=== PATIENT | female | born 1975 | race Caucasian/White ===

== ENCOUNTER → 2019-09-19 13:12 | Outpatient (BNVA) | payer OTHER, SELFPAY | PROVIDERS: PCP Obstetrics & Gynecology; Visit Provider Obstetrics & Gynecology | DX: N93.9 Abnormal uterine and vaginal bleeding, unspecified (principal) | CPT/HCPCS: 76830 ==

== ENCOUNTER 2021-01-24 07:11 | Outpatient (CLI) | payer OTHER, SELFPAY ==
--- NOTE | 2021-01-24 07:30 | MM_ITS ---
WS: [id number] Bilateral screening digital mammogram, 01/24/2021 Clinical Data: Z12.39 - Encounter for other screening for malignant neop... Comparison: 02/24/2019, 08/20/2017, 06/04/2016, 08/29/2014, 08/21/2014. Findings: The breast parenchymal pattern shows fibroglandular tissue No spiculated masses or clustered calcific ations are seen. There are no secondary signs of carcinoma. There are lymph nodes in both axilla. MM/[id number] Impression: 1. Negative bilateral mammogram unchanged. 2. Recommend annual screening mammograms. BIRADS: 1-Negative FOLLOW UP: 1 Year Follow-up The CAD weight yardage checker was used.
== END 2021-01-24 07:12 | disposition home or self-care (01) ==
LOC: RADSHAW 07:16
PROVIDERS: Visit Provider Nurse Practitioner Women's Health
DX: Z12.31 Encounter for screening mammogram for malignant neoplasm of breast (principal)
CPT/HCPCS: 77067

== ENCOUNTER → 2022-02-25 16:16 | Outpatient (BNVA) | payer OTHER, SELFPAY | PROVIDERS: Visit Provider Nurse Practitioner Women's Health | DX: N93.9 Abnormal uterine and vaginal bleeding, unspecified (principal); Z01.419 Encounter for gynecological examination (general) (routine) without abnormal findings; N76.0 Acute vaginitis; Z30.431 Encounter for routine checking of intrauterine contraceptive device; N89.8 Other specified noninflammatory disorders of vagina | CPT/HCPCS: 84443; 84702; 85025; 87624 ==

== ENCOUNTER → 2022-03-02 08:13 | Outpatient (BNVA) | payer OTHER, SELFPAY | PROVIDERS: Visit Provider Nurse Practitioner Women's Health | DX: N93.9 Abnormal uterine and vaginal bleeding, unspecified (principal) | CPT/HCPCS: 76830 ==

== ENCOUNTER → 2022-05-05 13:00 | Outpatient (BNVA) | payer OTHER, SELFPAY | PROVIDERS: Visit Provider Obstetrics & Gynecology | DX: N93.9 Abnormal uterine and vaginal bleeding, unspecified (principal); N84.0 Polyp of corpus uteri | CPT/HCPCS: 81025; 88305 ==

== ENCOUNTER 2022-07-15 05:39 | Day surgery (SDC) | payer OTHER, SELFPAY ==
[2022-07-13 09:46] VITALS: BMI 32.9
--- NOTE | 2022-07-13 10:00 | ANES.PREANE2 ---
Pre-Anesthetic Assessment Height/Weight: Height 1.68 m Weight 92.533 kg Operation Date: 07/15/22 07:10 Proposed Procedures p Hysteroscopy, polypectomy via Myosure 39443, 36839(Not Applicable) - Timbo Moreno MD s Dilation And Curettage (D&C)(Not Applicable) - Timbo Moreno MD Familial anesthetic complications: None Social Tobacco (quit smoking 2 days ago) Exam alert, oriented x 3, clear to auscultation bilaterally and regular rate & rhythm Airway Mallampati: Class II Dentition: partials Pulmonary None reported CV/HEM None reported None reported Hepatic None reported GI None reported Metabolic None reported Musc/skel None reported Neuropsych None reported Anesthetic Plan ASA status: 1 Anesthesia: General Risk of > 500 ml blood loss (7ml/kg in children): No Medications/Allergies Home Medications Medication Instructions Recorded Confirmed Last Taken Type No Known Home Medications 05/05/22 07/13/22 Unknown History Allergies Allergy/AdvReac Type Severity Reaction Status Date / Time No Known Allergies Allergy Verified 07/13/22 08:09 [facility] Anesthesia Medical History (Updated 05/05/22 @ 14:17 by Timbo Moreno MD) Abnormal uterine bleeding (AUB) Menometrorrhagia No pertinent past medical history neghx: htn,dm,thyroid,dvt/pe PCP: none White coat syndrome with high blood pressure but without hypertension Surgical History No history of previous surgery Family History Mother Hypertension Sister Hypertension Grandmother Diabetes MGM Family/Other Diabetes Maternal aunt Thyroid disease Maternal Aunt Denies family history of Colon cancer Ovarian cancer Heart disease Hypercholesteremia Breast cancer Uterine cancer Stroke Social History Smoking and tobacco status: former smoker Additional social history: Well balanced diet Data Anesthesia Cardiac Studies: No Data to Display
[2022-07-15 06:05] VITALS: BP 192/127; PULSE 91; RESP 18; TEMP 36.2; O2SAT 96
[2022-07-15 06:20] LABS: OR HCG Qualitative Urine Negative (Negative)
[2022-07-15] MEDS: scopolamine 1.5 Patch 1 PATCH TRANSDERMA (06:21)
[2022-07-15] MEDS: sodium chloride 0.9% 1,000 ML 30 ML IV (06:22)
[2022-07-15 06:33] LABS: Basophils % 0.6 %; Eosinophils % 0.6 %; Hematocrit 45.8 % (37.0-47.0); Hemoglobin 15.3 g/dL (11.5-15.3); Lymphocytes # 2.4 10^3/uL (0.8-4.8); Lymphocytes % 34.5 %; Mean Corpuscular HGB Conc 33.4 g/dL (30.0-36.0); Mean Corpuscular Hemoglobin 29.6 pg (28.0-34.0); Mean Corpuscular Volume 88.6 fl (81-99); Mean Platelet Volume 10.7 fL (7.4-10.4); Monocytes # 0.7 10^3/uL (0.2-0.9); Monocytes % 9.5 %; Neutrophils % 54.2 %; Nucleated Red Blood Cells % 0 %; Platelet Count 267 10^3/cmm (130-400); Red Blood Count 5.17 10^6/uL (4.1-5.3); Red Cell Distribution Width 12.7 % (12.1-15.1); White Blood Count 6.8 10^3/uL (4.0-10.0)
--- NOTE | 2022-07-15 06:36 | P.ANESUD_ITS ---
Pre-Anesthetic Update Pre-Anesthetic Assessment: Date of Surgery/Procedure: 07/15/22 Preop Jaci gnosis: Abnormal uterine bleeding, endometrial polyp Proposed Procedure: Operation Date: 07/15/22 07:00 Proposed Procedures p Hysteroscopy, polypectomy via Myosure 54303, 25676(Not Applicable) - Timbo Moreno MD s Dilation And Curettage (D&C)(Not Applicable) - Timbo Moreno MD Any changes to Pre-Anesthetic Assessment?: No Last Intake: Intake Last Liquid Date 07/14/22 Last Liquid Time 18:30 Last Solid Date 07/14/22 Last Solid Time 18:30 Labs Last 48hrs: Short CBC 07/15/22 Range/Units 06:15 WBC 6.8 (4.0-10.0) 10^3/ uL Hgb 15.3 (11.5-15.3) g/dL Hct 45.8 (37.0-47.0) % MCV 88.6 (81-99) fl Plt Count 267 (130-400) 10^3/c mm Neut % (Auto) 54.2 % Neut # (Auto) 3.70 (1.8-7.7) 10^3/u L Vitals: Temperature 97.2 F L 07/15/22 06:05 Pulse Rate 91 07/15/22 06:05 Respiratory Rate 18 07/15/22 06:05 Blood Pressure 192/127 07/15/22 06:05 Blood Pressure Ingrid n 148 07/15/22 06:05 Pulse Oximetry 96 07/15/22 06:05 Oxygen Delivery Me thod 07/15/22 06:05 Exam: Pre-Anes Outpt Exam: alert, oriented x 3, clear to auscultation bilaterally and regular rate & rhythm Cardiac Studies: No Data to Display
[2022-07-15 06:52] LABS: Alanine Aminotransferase 58 U/L (0-33); Albumin Level 4.3 g/dL (3.5-5.2); Alkaline Phosphatase 101 U/L (35-105); Anion Gap 15.9 (5-19); Aspartate Amino Transferase 28 U/L (0-32); Blood Urea Nitrogen 11 mg/dL (6-20); Carbon Dioxide 22 mmol/L (22-29); Chloride 103 mmol/L (98-107); Glomerular Filtration Rate 107.2 mL/min (90-130); Glucose 108 mg/dL (65-115); Osmolality Calculated 284 mOsm/kg (285-295); Potassium 3.9 mmol/L (3.5-5.1); Sodium 137 mmol/L (136-145); Total Bilirubin 0.4 mg/dL (0.15-1.2); Total Protein 7.3 g/dL (6.6-8.7)
[2022-07-15 06:54] LABS: Bilirubin Urine Neg (Negative); Blood Urine 2+ (Negative); Glucose Urine UA Norm (Normal); Ketones Urine Negative (Negative); Nitrate Urine Negative (Negative); Protein Urine Neg (Negative); Urine Appearance Clear (CLEAR); Urine Color Yellow (Yellow); pH Urine 5 (5-7)
[2022-07-15 06:55] LABS: Add Urine Microscopic? YES; Leukocyte Esterase Urine Negative (Negative); Urobilinogen Urine Neg (Negative)
[2022-07-15] MEDS: ceFAZolin 2,000 MG in sodium chloride 0.9% (plus) 50 ML 100 MG IV (07:04)
--- NOTE | 2022-07-15 07:04 | W.PM.OPSUD ---
Surgery/Procedure H&P Update DATE OF PROCEDURE: July 15, 2022 DATE H&P PERFORMED: 07/13/22 H&P UPDATE INFORMATION: I have reviewed H&P completed within last 30 days, I have examined patient prior to procedure and No changes to prior documentation PREOP DIAGNOSIS: Abnormal uterine bleeding, endometrial polyp PLANNED PROCEDURE: Operation Date: 07/15/22 07:00 Proposed Procedures p Hysteroscopy, polypectomy via Myosure 46258, 76525(Not Applicable) - Timbo Moreno MD s Dilation And Curettage (D&C)(Not Applicable) - Timbo Moreno MD
[2022-07-15 07:12] LABS: Add Urine Culture? No; Mucus Urine 1+ /hpf; Squamous Epithelial Cell Urine 15-25 /hpf (0-5)
--- NOTE | 2022-07-15 07:55 | P.OP_ITS ---
Operative Report Date of procedure: July 15, 2022 Pre-op diagnosis: Preop Diagnosis Abnormal uterine bleeding, endometrial polyp Post-op diagnosis: Endometrial polyp Procedure done: Hysteroscopy and D&C via MyoSure Hysteroscopic polypectomy Specimens removed/disposition: Endometrial polyp and curettings Surgeon: Timbo Moreno MD Estimated blood loss (mL): 5 IV fluids (mL): 600 Complications: None Brief History: 47-year-old female with abnormal uterine bleeding unresponsive to medical manage Procedure: After informed consent, the risks included but were not limited to bleeding, infection, injury to internal organs. The patient was counseled on a possible laparotomy and on the potential need for hysterectomy. The patient expressed understanding of the risks involved, all questions were answered, and the patient consented to the procedure. The patient was taken to the operating room where general anesthesia was administered. She was placed in the dorsal lithotomy position and prepped and draped in sterile fashion. A time out procedure was performed. The patient was examined under anesthesia and found to have a normal uterus with normal adnexa. A sterile weight speculum was placed in the vagina. The uterus was then gently sounded to 7 cm, and the cervix was dilated. The 0 degrees MyoSure hysteroscope was advanced gently to the uterine fundus while visualizing the monitor. Survey of the uterine cavity showed: Pedicle of the pedunculated endometrial polyp on the posterior wall, the fundus shows normal proliferative endometrium; left ostium was visualized, and lateral wall with proliferative endometrium; right ostium visualized, and lateral wall with proliferative endometrium; anterior and posterior rocha are with proliferative endometrium; endocervical canal is normal. The MyoSure device was advanced and the direct visualization the polyp was morcellated without complication. At the end of morcellation the fluid deficit was 275 mL and was estimated at appro ximately 200 mL were on the floor. There was minimal bleeding noted and the tenaculum removed with goad hemostasis noted. The patient tolerated the procedure well. The patient was taken to the recovery area in stable condition.
[2022-07-15 08:04] VITALS: BP 159/100; PULSE 100; RESP 16; TEMP 36.1; O2SAT 99
[2022-07-15 08:09] VITALS: BP 161/100; PULSE 101; RESP 18; O2SAT 98
[2022-07-15 08:14] VITALS: BP 163/109; PULSE 98; RESP 18; O2SAT 96
[2022-07-15 08:15] VITALS: BP 155/100; PULSE 87; RESP 18; TEMP 36.3; O2SAT 95
[2022-07-15 08:45] VITALS: BP 146/105; PULSE 78; RESP 18; O2SAT 95
--- NOTE | 2022-07-15 13:37 | ANE.PACU2 ---
Inpatient post-anesthesia follow up: Airway intact: Yes Vital signs: Temperature 97.4 F Pulse Rate 78 Respiratory Rate 18 Blood Pressure 146/105 Pulse Oximetry 95 Oxygen Delivery Me thod Room Air Oxygen Flow Rate 6 Fraction of Inspir ed Oxygen Hydration adequate: Yes Nausea and vomiting: No Pain level: 1 Mental status: Baseline
== END 2022-07-15 09:03 | disposition home or self-care (01) ==
PROVIDERS: Visit Provider Obstetrics & Gynecology
PROC: 0UDB8ZZ Extraction of Endometrium, Via Natural or Artificial Opening Endoscopic (ICD-10-PCS; CPT 58558; principal; 2022-07-15 07:00)
PROC: (CPT 58120; 2022-07-15 07:00)
DX: N93.9 Abnormal uterine and vaginal bleeding, unspecified (principal); Z87.891 Personal history of nicotine dependence
CPT/HCPCS: 58558; 36415; 80053; 81001; 81025; 84703; 85025; 86850; 86900; 88305; J0690; J1100; J2250; J2405; J2704; J3010; J7030

== ENCOUNTER → 2022-10-19 13:23 | Outpatient (BNVA) | payer OTHER, SELFPAY | PROVIDERS: Visit Provider Obstetrics & Gynecology | DX: N93.9 Abnormal uterine and vaginal bleeding, unspecified (principal); N84.1 Polyp of cervix uteri | CPT/HCPCS: 81025 ==

== ENCOUNTER 2022-11-11 08:58 | Observation (INO) | payer OTHER, SELFPAY ==
[2022-11-10 13:00] VITALS: BMI 30.4
[2022-11-10 13:27] LABS: OR HCG Qualitative Urine Negative (Negative)
[2022-11-10 13:40] LABS: Basophils # 0.1 10^3/uL (0.0-0.1); Basophils % 0.6 %; Eosinophils % 0.4 %; Hematocrit 42.7 % (37.0-47.0); Hemoglobin 14.2 g/dL (11.5-15.3); Lymphocytes # 2.8 10^3/uL (0.8-4.8); Lymphocytes % 27.8 %; Mean Corpuscular HGB Conc 33.3 g/dL (30.0-36.0); Mean Corpuscular Hemoglobin 29.8 pg (28.0-34.0); Mean Corpuscular Volume 89.5 fl (81-99); Mean Platelet Volume 10.8 fL (7.4-10.4); Monocytes # 0.9 10^3/uL (0.2-0.9); Monocytes % 8.9 %; Neutrophils # 6.13 10^3/uL (1.8-7.7); Neutrophils % 61.6 %; Nucleated Red Blood Cells % 0 %; Platelet Count 235 10^3/cmm (130-400); Red Blood Count 4.77 10^6/uL (4.1-5.3); Red Cell Distribution Width 12.1 % (12.1-15.1); White Blood Count 9.9 10^3/uL (4.0-10.0)
--- NOTE | 2022-11-10 13:47 | ANES.PREANE2 ---
Pre-Anesthetic Assessment Height/Weight: Height 1.73 m Weight 90.718 kg Operation Date: 11/11/22 07:00 Proposed Procedures p Total vaginal hysterectomy, bilateral salpingo-oophorectomy 54738 ,N93.9(Not Applicable) - Timbo Moreno MD s Salpingo-Oophorectomy (Vaginal)(Left) - Timbo Moreno MD Familial anesthetic complications: none Was Beta Aneudy taken within 24 hours: N/A Was Clonidine taken within 24 hours: N/A Social Tobacco and No alcohol Exam alert, oriented x 3 and regular rate & rhythm Airway Submandibular: within normal limits Cervical ROM: within normal limits Mallampati: Class III Dentition: partials CV/HEM Hypertension Anesthetic Plan ASA status: 2 Anesthesia: General Medications/Allergies Home Medications Medication Instructions Recorded Confirmed Last Taken Type lisinopril 20 1 tab PO DAILY 11/10/22 11/10/22 1 Day Ago History mg-hydrochlorothiazide 12.5 mg ~11/09/22 tablet Allergies Allergy/AdvReac Type Severity Reaction Status Date / Time No Known Allergies Allergy Verified 11/10/22 12:59 PFSH Anesthesia Medical History Abnormal uterine bleeding (AUB) Menometrorrhagia No pertinent past medical history neghx: htn,dm,thyroid,dvt/pe PCP: none White coat syndrome with high blood pressure but without hypertension Surgical History History of hysteroscopy (~07/15/22) D&C for polypectomy-- benign pathology Family History Mother Hypertension Sister Hypertension Grandmother Diabetes MGM Family/Other Diabetes Maternal aunt Thyroid disease Maternal Aunt Denies family history of Colon cancer Ovarian cancer Heart disease Hypercholesteremia Breast cancer Uterine cancer Stroke Social History Smoking and tobacco status: former smoker Substance/Drug Use: never Additional social history: Well balanced diet Data Anesthesia 11/10/22 13:30 11/10/22 13:30 Short CBC 11/10/22 Range/Units 13:30 WBC 9.9 (4.0-10.0) 10^3/uL Hgb 14.2 (11.5-15.3) g/dL Hct 42.7 (37.0-47.0) % MCV 89.5 (81-99) fl Plt Count 235 (130-400) 10^3/cmm Neut % (Auto) 61.6 % Neut # (Auto) 6.13 (1.8-7.7) 10^3/uL Cardiac Studies: No Data to Display
[2022-11-10 13:55] LABS: Add Urine Culture? No; Add Urine Microscopic? YES; Bilirubin Urine Neg (Negative); Blood Urine 2+ (Negative); Glucose Urine UA Norm (Normal); Ketones Urine Negative (Negative); Leukocyte Esterase Urine Negative (Negative); Nitrate Urine Negative (Negative); Protein Urine Neg (Negative); RBC Urine RARE /hpf (0-2); Specific Gravity, Urine 1.005 (1.005-1.030); Squamous Epithelial Cell Urine 0-4 /hpf (0-5); Urine Appearance Clear (CLEAR); Urine Color Yellow (Yellow); Urobilinogen Urine Neg (Negative); pH Urine 7 (5-7)
[2022-11-10 14:01] LABS: Alanine Aminotransferase 34 U/L (0-33); Albumin Level 4.1 g/dL (3.5-5.2); Alkaline Phosphatase 107 U/L (35-105); Aspartate Amino Transferase 19 U/L (0-32); Blood Urea Nitrogen 14 mg/dL (6-20); Calcium 9.2 mg/dL (8.5-10.5); Carbon Dioxide 26 mmol/L (22-29); Chloride 98 mmol/L (98-107); Globulin 3.1 g/dL (1.3-4.6); Glomerular Filtration Rate 76.9 mL/min (90-130); Glucose 90 mg/dL (65-115); Osmolality Calculated 280 mOsm/kg (285-295); Sodium 135 mmol/L (136-145); Total Bilirubin 0.2 mg/dL (0.15-1.2); Total Protein 7.2 g/dL (6.6-8.7)
[2022-11-10 14:02] LABS: Anion Gap 14.6 (5-19); Potassium 3.6 mmol/L (3.5-5.1)
[2022-11-11] VITALS (14 sets, daily range): BP systolic 99–145; BP diastolic 64–96; PULSE 62–88; RESP 15–18; TEMP 36.1–37; O2SAT 94–99
[2022-11-11] MEDS: sodium chloride 0.9% 500 ML IV (06:17)
[2022-11-11] MEDS: scopolamine 1.5 Patch 1 PATCH TRANSDERMA (06:18)
--- NOTE | 2022-11-11 06:59 | W.PM.OPSUD ---
Surgery/Procedure H&P Update DATE OF PROCEDURE: November 11, 2022 DATE H&P PERFORMED: 11/09/22 H&P UPDATE INFORMATION: I have reviewed H&P completed within last 30 days, I have examined patient prior to procedure and No changes to prior documentation PREOP DIAGNOSIS: Abnormal uterine bleeding PLANNED PROCEDURE: Operation Date: 11/11/22 07:00 Proposed Procedures p Total vaginal hysterectomy, bilateral salpingo-oophorectomy 36321 ,N93.9(Not Applicable) - Timbo Moreno MD s Salpingo-Oophorectomy (Vaginal)(Left) - Timbo Moreno MD
[2022-11-11] MEDS: ceFOXitin 2,000 MG in sodium chloride 0.9% (plus) 50 ML 100 MG IV (07:03)
[2022-11-11] MEDS: lidocaine-epi 2% 20 mL INJ 10 ML INJECTION (07:48)
--- NOTE | 2022-11-11 08:07 | P.ANESUD_ITS ---
Pre-Anesthetic Update Pre-Anesthetic Assessment: Date of Surgery/Procedure: 11/11/22 Preop Jaci gnosis: Abnormal uterine bleeding Proposed Procedure: Operation Date: 11/11/22 07:00 Proposed Procedures p Total vaginal hysterectomy, bilateral salpingo-oophorectomy 31753 ,N93.9(Not Applicable) - Timbo Moreno MD s Salpingo-Oophorectomy (Vaginal)(Left) - Timbo Moreno MD Any changes to Pre-Anesthetic Assessment?: No Last Intake: Intake Last Liquid Date 11/10/22 Last Liquid Time 21:30 Last Solid Date 11/10/22 Last Solid Time 18:00 Labs Last 48hrs: Short CBC 11/10/22 Range/Units 13:30 WBC 9.9 (4.0-10.0) 10^3/ uL Hgb 14.2 (11.5-15.3) g/dL Hct 42.7 (37.0-47.0) % MCV 89.5 (81-99) fl Plt Count 235 (130-400) 10^3/c mm Neut % (Auto) 61.6 % Neut # (Auto) 6.13 (1.8-7.7) 10^3/u L BMP 11/10/22 13:30 Sodium 135 L Potassium 3.6 Chloride 98 Carbon Dioxide 26 BUN 14 Creatinine 0.8 Glucose 90 Calcium 9.2 Liver Function 11/10/22 Range/Units 13:30 Total Bilirubin 0.2 (0.15-1.2) mg/dL AST 19 (0-32) U/L ALT 34 H (0-33) U/L Alkaline Phosphata se 107 H (35-105) U/L Albumin 4.1 (3.5-5.2) g/dL Urine 11/10/22 Range/Units 13:30 Urine Color Yellow (Yellow) Urine Appearance Clear (CLEAR) Urine pH 7 (5-7) Ur Specific Gravit y 1.005 (1.005-1.030) Urine Protein Neg (Negative) Urine Glucose (UA) Norm (Normal) Urine Ketones Negative (Negative) Urine Nitrate Negative (Negative) Urine Bilirubin Neg (Negative) Ur Leukocyte Erika ase Negative (Negative) Urine RBC Rare (0-2) /hpf Urine WBC None (0-5) /hpf Blood Bank 11/10/22 13:30 Blood Type A Negative Rho(D) Type Negative Antibody Screen Negative Vitals: Temperature 97.1 F L 11/11/22 06:00 Temperature Source Temporal Artery S can 11/11/22 06:00 Pulse Rate 84 11/11/22 06:00 Pulse Rhythm Regular 11/11/22 06:00 Pulse Strength 3+ Normal 11/11/22 06:00 Respiratory Rate 18 11/11/22 06:00 Blood Pressure 145/96 11/11/22 06:00 Blood Pressure Ingrid n 112 11/11/22 06:00 Pulse Oximetry 97 11/11/22 06:00 Oxygen Delivery Me thod Room Air 11/11/22 06:00 Exam: Pre-Anes Outpt Exam: alert, oriented x 3, clear to auscultation bilaterally and regular rate & rhythm Cardiac Studies: No Data to Display
--- NOTE | 2022-11-11 08:35 | P.OP_ITS ---
Operative Report Date of procedure: November 11, 2022 Pre-op diagnosis: Preop Diagnosis Abnormal uterine bleeding Post-op diagnosis: Same Procedure done: Total vaginal hysterectomy with left salpingo-oophorectomy Specimens removed/disposition: Uterus. Left fallopian tube and ovary Surgeon: Timbo Moreno MD Estimated blood loss (mL): 100 IV fluids (mL): 800 Urine output (mL): 100 Complications: Supravesical artery bleeder Procedure: After informed consent and risks, benefits, indications and alternatives reviewed with the patient was taken to the operating room. The patient was placed in dorsal lithotomy position prepped, and draped in the usual sterile fashion. The pre-procedure timeout verifying the correct patient, procedure, site and side, could not requirements was performed and acknowledge by the OR team. A Carpio catheter was placed. A Bookwalter vaginal retractor was placed into the vagina in usual manner visualize the cervix. Cervix was grasped with a single tooth tenaculum and circumferentially infiltrated with 2% lidocaine with epinephrine. Then cervix was circumferentially incised with bovie and the bladder was dissected off the pubovesical cervical fascia anteriorly with a sponge stick and Metzenbaum scissors. The anterior peritoneal reflection was identified and the anterior cul-de-sac was entered sharply with Metzenbaum scissors. The same procedure was performed posteriorly and a posterior colpotomy was made through the posterior cul-de-sac space without difficulty and the posterior blade of the Bookwalter vaginal retractor was advanced posteriorly into the cul-de-sac. At this time, the left and right uterosacral ligaments were isolated and ligated with 0 Vicryl. The Enseal device was placed over the uterosacral ligaments on either side and was then used in a serial fashion up through the cardinal ligaments bilaterally cross-clamped, cut, and sealed with the Enseal device. Finally, the uterine arteries were cross-clamped, cut, sealed and ligated with the Enseal device. Hemostasis was assured. The broad ligaments were then serially clamped, sealed and cut with the Enseal device on both sides. Excellent hemostasis was visualized. Both cornua were clamped, sealed and cut with the Enseal device. Then the pedicles were then suture ligated with excellent hemostasis. The uterus was excised and submitted for pathologic evaluation. No other ab normalities were noted in the pelvic cavity. Then the left side Infundibular ligament was identified. The ureter was confirmed along the pelvic side wall and peristalsis was noted. The Enseal device was then used to clamp, sealed and transcepted at middistance, again being sure to be clear of the ureter and the fallopian tube and ovary were removed. Good hemostasis was assure on both sides. A bleeder vesel at base of bladder was noted. The vessele was ligated with 3-0 Vicryl. Due to suture on the bldder I will advise the patient she will be discharge home with a carpio catheter. The peritoneum was then closed in a pursestring fashion with 0 Vicryl suture. The vaginal cuff angles were closed with [id number] #0 Vicryl suture on both sides and transfixed with the ipsilateral cardinal and uterosacral ligaments. The remainder of the vaginal cuff was closed with #0 Vicryl in a running locked fashion. At this time, instruments were removed from the vagina at hemostasis assured. The Carpio catheter was noted yielding clear virgilio urine. The patient was taken out of dorsal lithotomy position and awakened from the general anesthesia. The patient tolerated the procedure well and was taken to the PACU recovery room in a stable condition. Sponge, lap, needle and instruments counts were correct x3.
[2022-11-11] MEDS: ketorolac 30 mg/mL INJ IVP ×2 (10:00→14:29)
[2022-11-11] MEDS: docusate sodium 100 mg Capsule PO ×2 (10:01→21:15)
[2022-11-11] MEDS: lisinopril 20 mg Tablet PO (10:01)
[2022-11-11] MEDS: dextrose 5%-lactated ringers 1,000 ML 125 ML IV (10:01)
[2022-11-11] MEDS: hydroCHLOROthiazide 25 mg Tablet 12.5 MG PO (10:01)
--- NOTE | 2022-11-11 14:50 | PC.NURSE ---
Pt asked this repairer typewriter to remove her scopalimine patch. Educated pt that it is used for post op nausea, pt asked to have it removed anyway. Patch removed and discarded and site was cleaned with warm water.
--- NOTE | 2022-11-11 15:30 | ANE.PACU2 ---
Inpatient post-anesthesia follow up: Airway intact: Yes Vital signs: Temperature 98.3 F Pulse Rate 75 Respiratory Rate 16 Blood Pressure 145/88 Pulse Oximetry 95 Oxygen Delivery Me thod Room Air Oxygen Flow Rate Fraction of Inspir ed Oxygen Hydration adequate: Yes Nausea and vomiting: No Pain level: 3 Mental status: Baseline
[2022-11-11] MEDS: simethicone 80 mg Chew PO (21:06)
[2022-11-11] MEDS: ibuprofen 800 mg tablet PO (21:15)
--- NOTE | 2022-11-12 03:39 | P.DS_ITS ---
Discharge Providers EQUIPMENT MONITOR PHOTOTYPESETTING Date of Admission: 11/11/22 08:58 Date of Discharge: 11/12/22 Attending Provider at Admission: Timbo Moreno MD Attending Provider at Discharge: Timbo Moreno MD Primary Care Provider: Wallace Maria MD Reason for Visit Reason for Visit: N93.9 Hospital Course Hospital Course Mrs. Peterson 47-year-old female with a history of abnormal uterine bleeding approximate management and pelvic pain. Admitted for a total vaginal hysterectomy left salpingo-oophorectomy. The procedure was performed without complication however there was a bleeder over the bladder at the time of colpotomy which was ligated and sutures were placed on the bladder. Patient was counseled regarding this and the recommendation for Carrillo catheter until next week to continue resting the bladder. She is afebrile and hemodynamically stable postoperative day 1. Tolerating diet well. Ambulating without difficulty. She was counseled regarding pelvic rest for 6 weeks (no sex, no tampons, no vaginal douches). Return to the emergency room if any fever, increased bleeding or pain. Physical Exam Narrative: GA: Alert and oriented ?3. HEENT: WNL. Heart: Regular rate and rhythm. Lungs: Clear to auscultation bilaterally. Abdomen: Bowel sounds present, nontender. [employer]: Spotting bleeding. Extremities: No edema, no cyanosis, no calves pain. Urinary Catheter Management: Carrillo: Cath Placed During This Visit: yes Urinary Catheter Date of Insertion: 11/11/22 Urinary Catheter Time of Insertion: 07:34 History History History 1 Term 1 0 Miscarriages/Ectopic 0 Living Children 1 Discharge Data Studies Completed and Pending Pending at discharge Category Date Time Status Hemagram Timed Lab 11/12/22 05:00 Uncollected Pathology: Surgical [PTH] Routine Pth 11/11/22 08:09 Received Laboratory Results WBC 9.9 10^3/uL (4.0-10.0) 11/10/22 13:30 RBC 4.77 10^6/uL (4.1-5.3) 11/10/22 13:30 Hgb 14.2 g/dL (11.5-15.3) 11/10/22 13:30 Hct 42.7 % (37.0-47.0) 11/10/22 13:30 MCV 89.5 fl (81-99) 11/10/22 13:30 MCH 29.8 pg (28.0-34.0) 11/10/22 13:30 MCHC 33.3 g/dL (30.0-36.0) 11/10/22 13:30 RDW 12.1 % (12.1-15.1) 11/10/22 13:30 Plt Count 235 10^3/cmm (130-400) 11/10/22 13:30 MPV 10.8 fL (7.4-10.4) H 11/10/22 13:30 Neut % (Auto) 61.6 % 11/10/22 13:30 Lymph % (Auto) 27.8 % 11/10/22 13:30 [place] % (Auto) 8.9 % 11/10/22 13:30 Eos % (Auto) 0.4 % 11/10/22 13:30 Baso % (Auto) 0.6 % 11/10/22 13:30 Neut # (Auto) 6.13 10^3/uL (1.8-7.7) 11/10/22 13:30 Lymph # (Auto) 2.8 10^3/uL (0.8-4.8) 11/10/22 13:30 [place] # (Auto) 0.9 10^3/uL (0.2-0.9) 11/10/22 13:30 Eos # (Auto) 0.0 10^3/uL (0.0-0.8) 11/10/22 13:30 Baso # (Auto) 0.1 10^3/uL (0.0-0.1) 11/10/22 13:30 Nucleated RBC % (auto) 0 % 11/10/22 13:30 Nucleated RBCs # 0.0 /100WBC 11/10/22 13:30 Sodium 135 mmol/L (136-145) L 11/10/22 13:30 Potassium 3.6 mmol/L (3.5-5.1) 11/10/22 13:30 Chloride 98 mmol/L (98-107) 11/10/22 13:30 Carbon Dioxide 26 mmol/L (22-29) 11/10/22 13:30 Anion Gap 14.6 (5-19) 11/10/22 13:30 BUN 14 mg/dL (6-20) 11/10/22 13:30 Creatinine 0.8 mg/dL (0.5-0.9) 11/10/22 13:30 GFR Calculation 76.9 mL/min (90-130) L 11/10/22 13:30 Glucose 90 mg/dL (65-115) 11/10/22 13:30 Calculated Osmolality 280 mOsm/kg (285-295) L 11/10/22 13:30 Calcium 9.2 mg/dL (8.5-10.5) 11/10/22 13:30 Total Bilirubin 0.2 mg/dL (0.15-1.2) 11/10/22 13:30 AST 19 U/L (0-32) 11/10/22 13:30 ALT 34 U/L (0-33) H 11/10/22 13:30 Alkaline Phosphatase 107 U/L (35-105) H 11/10/22 13:30 Total Protein 7.2 g/dL (6.6-8.7) 11/10/22 13:30 Albumin 4.1 g/dL (3.5-5.2) 11/10/22 13:30 Globulin 3.1 g/dL (1.3-4.6) 11/10/22 13:30 Urine Color Yellow (Yellow) 11/10/22 13:30 Urine Appearance Clear (CLEAR) 11/10/22 13:30 Urine pH 7 (5-7) 11/10/22 13:30 Ur Specific [place] 1.005 (1.005-1.030) 11/10/22 13:30 Urine Protein Neg (Negative) 11/10/22 13:30 Urine Glucose (UA) Norm (Normal) 11/10/22 13:30 Urine Ketones Negative (Negative) 11/10/22 13:30 Urine Blood 2+ (Negative) H 11/10/22 13:30 Urine Nitrate Negative (Negative) 11/10/22 13:30 Urine Bilirubin Neg (Negative) 11/10/22 13:30 Urine Urobilinogen Neg mg/dL (Negative) 11/10/22 13:30 Ur Leukocyte Esterase Negative (Negative) 11/10/22 13:30 Urine RBC Rare /hpf (0-2) 11/10/22 13:30 Urine WBC None /hpf (0-5) 11/10/22 13:30 Ur Squamous Epith Cells 0-4 /hpf (0-5) H 11/10/22 13:30 Amorphous Sediment Not Reportable 11/10/22 13:30 Urine Bacteria None /hpf (NONE) 11/10/22 13:30 Urine HCG, Qual Negative (Negative) 11/10/22 12:58 Blood Type A Negative 11/10/22 13:30 Rho(D) Type Negative 11/10/22 13:30 Antibody Screen Negative 11/10/22 13:30 Vitals Last Vital Signs Temp 98.4 F 11/11/22 22:00 Pulse 63 11/11/22 22:00 Resp 18 11/11/22 22:00 BP 103/64 11/11/22 22:00 Pulse Ox 96 11/11/22 22:00 O2 Del Method Room Air 11/11/22 22:00 Discharge Plan Discharge Patient Disposition: Home Condition: Stable Prescriptions: New hydrocodone-acetaminophen 5-325 mg tablet 1 tab PO Q4H PRN (Reason: pain) Qty: 20 0RF acetaminophen 325 mg capsule 325 mg PO Q4H PRN (Reason: fever or positive pain) Qty: 60 0RF docusate sodium [Colace] 100 mg capsule 100 mg PO BID Qty: 60 0RF nitrofurantoin macrocrystal 100 mg capsule 100 mg PO BID 7 Days Qty: 14 0RF Rx Instructions: must administer with a meal/food ibuprofen 800 mg tablet 800 mg PO TID PRN (Reason: pain) Qty: 60 0RF No Action lisinopril-hydrochlorothiazide 20-12.5 mg tablet 1 tab PO DAILY Discharge Orders: Discharge Order (Routine); Ordered 11/12/22 Ordered By: Timbo Moreno Referrals: Timbo Moreno MD [Physician] - 2 weeks (F/U at clinic Wednesday for Carrillo catheter removal) Discharge Diet: Usual diet Discharge Activity: Limit activity as instructed Patient Instructions: Salpingo-Oophorectomy (DC), Vaginal Hysterectomy (DC), OB Discharge Report, OB Food/Drug Interaction Guide, Opioid Safety Activity Restrictions/Additional Instructions: 1. Please call [facility] on next working day to make your post-operative appointment in 2 weeks. 2. Please stay home until you come back to the clinic on first post- hospatilization check up. 3. Please follow instructions on your medications CAREFULLY. 4. If you have abdominal incision, do not cover it unless dressing is necessary because of drainage. OK to shower, but avoid bath. Leave steri-strips until they fall off. If they are still on one week after surgery, you may remove them. 5. If you had vaginal surgery or vaginal repair, Dr. Moreno may instruct you to take SITZ bath. 6. Yellow, blood tinged odorous vaginal discharge is usually normal after hysterectomy or vaginal surgeries. 7. No SEXUAL INTERCOURSE, tampons, or douches until you are completely released from the post-operative care. 8. Avoid constipation by eating right and maybe using some Metamucil or Milk of Magnesia. 9. All prescription refills are given during the working hours. Please do no wait till it runs out. Call the clinic at [phone] before your medication runs out. The clinic will get in touch with your doctor to prescribe medicati ons if necessary. 10. Please remain within 40 mile radius from our hospital because emergencies do happen now and then during the post-operative period. 11. If you have stairs at home, take one step at a time slowly and minimize the number of trips. It helps to stay in one floor for the next few days. No lifting except what you can lift by one hand until you are released from the post-operative care. 12. Driving is discouraged until you are well healed. It may be 3-4 weeks before you feel strong enough to drive. You should be able to turn and look through the rear window without pain and you should be able to push the brake pedal very hard without pain before you drive. No fast rules, but SAFETY should be your primary concern. DO NOT drive if you are on sedating medications such as narcotics. 13. Call the clinic (during working hours) to make urgent appointment or go to the Emergency room, if any of the following occurs: i. Vaginal bleeding becomes heavy, more than a period. ii. Incision becomes red and sore, or drains pus. iii. Your TEMPERATURE is over 100.4F or you have chill. iv. IV site becomes red and swollen (a little ``knot?? is usually OK) v. Persistent nausea and vomiting vi. Persistent constipation or diarrhea vii. Rash or allergic reaction to medications. Discharge Attestations EQUIPMENT MONITOR PHOTOTYPESETTING Time Spent in Discharge Care*: greater than 30 min Coding Level of Care Code Acute Code for Chg Fwd Diagnoses
[2022-11-12 06:40] VITALS: BP 90/59; PULSE 69; RESP 18; TEMP 36.6; TEMP 36.7; O2SAT 94
[2022-11-12] MEDS: ibuprofen 800 mg tablet PO (06:45)
[2022-11-12] MEDS: simethicone 80 mg Chew PO (06:45)
[2022-11-12 06:57] LABS: Hematocrit 39.7 % (37.0-47.0); Hemoglobin 12.8 g/dL (11.5-15.3); Mean Corpuscular HGB Conc 32.2 g/dL (30.0-36.0); Mean Corpuscular Hemoglobin 29.4 pg (28.0-34.0); Mean Corpuscular Volume 91.3 fl (81-99); Mean Platelet Volume 10.9 fL (7.4-10.4); Platelet Count 220 10^3/cmm (130-400); Red Blood Count 4.35 10^6/uL (4.1-5.3); Red Cell Distribution Width 12.4 % (12.1-15.1); White Blood Count 14.2 10^3/uL (4.0-10.0)
[2022-11-12] MEDS: hydroCHLOROthiazide 25 mg Tablet 12.5 MG PO (08:35)
[2022-11-12] MEDS: lisinopril 20 mg Tablet PO (08:36)
[2022-11-12] MEDS: docusate sodium 100 mg Capsule PO (08:36)
[2022-11-12] MEDS: acetaminophen 325 mg Tablet 650 MG PO (08:44)
[2022-11-12 12:24] VITALS: BP 110/56; PULSE 78; RESP 14; TEMP 36.6; O2SAT 96
--- NOTE | 2022-11-12 12:42 | PC.NURSE ---
Patient and family at bedside provided with written and verbal education regarding follow up appointments/contact information, Medications, carpio catheter care, leg bag use and care, S/S of infection and when to call provider or 911. Patient and family also educated on activity restrictions after procedure. patient verbalized understanding, and provided teach back information for carpio care. Patient and family had no questions at the time of discharge. All belongings with patient and family. Patient brought to personal vehicle via wheelchair with SO as primary package delivery driver.
== END 2022-11-12 12:35 | disposition home or self-care (01) ==
LOC: OBGYN 08:59
PROVIDERS: Admitting Provider Obstetrics & Gynecology; PCP Family Medicine; Visit Provider Obstetrics & Gynecology
PROC: (CPT 58262; principal; 2022-11-11 07:00)
PROC: (CPT 58720; 2022-11-11 07:00)
DX: N93.9 Abnormal uterine and vaginal bleeding, unspecified (principal); R10.2 Pelvic and perineal pain; I10 Essential (primary) hypertension; Z87.891 Personal history of nicotine dependence; D25.9 Leiomyoma of uterus, unspecified
CPT/HCPCS: 58262; 36415; 80053; 81001; 84703; 85025; 85027; 86850; 86900; 88307; 96374; G0378; J0694; J1100; J1200; J1885; J2250; J2405; J2704; J2710; J3010; J3490; J7040; J7121; Q9968

== ENCOUNTER 2024-01-20 11:03 | Outpatient (CLI) | payer BC, SELFPAY ==
--- NOTE | 2024-01-20 11:30 | MM_ITS ---
WS: [id number] Bilateral screening 3D tomosynthesis digital mammogram, 01/20/2024 Clinical Data: Z12.31 - Encounter for screening mammogram for malignant ... Comparison: 01/24/2021, 02/24/2019, 08/20/2017, 06/04/2016, 08/09/2014, 08/21/2014. Findings: The breast parenchymal pattern shows fibroglandular tissue. No spiculated masses or clustered calcifi cations are seen. There are no secondary signs of carcinoma. MM/[place] [id number] Impression: 1. Negative bilateral mammogram unchanged. 2. Recommend annual screening mammograms. BIRADS: 1-Negative FOLLOW UP: 1 Year Follow-up The CAD baggage checker was used.
== END 2024-01-20 11:04 | disposition home or self-care (01) ==
LOC: RAD 11:03
PROVIDERS: PCP Family Medicine; Visit Provider Obstetrics & Gynecology
DX: Z12.31 Encounter for screening mammogram for malignant neoplasm of breast (principal); R92.323 Mammographic fibroglandular density, bilateral breasts
CPT/HCPCS: 77063; 77067

== ENCOUNTER 2025-03-09 08:38 | Outpatient (CLI) | payer BC, SELFPAY ==
--- NOTE | 2025-03-09 08:46 | MM_ITS ---
WS: [id number] BILATERAL SCREENING DIGITAL TOMOSYNTHESIS MAMMOGRAM WITH CAD HISTORY: SCREENING COMPARISON: 01/20/2024, 01/24/2021 Bilateral CC and MLO views with tomosynthesis and synthetic mammography submitted. Computer aided detection analyzed. Breast composition: There are scattered areas of fibroglandular density. No suspicious masses, microcalcifications or architectural distortion. MM/MM scr BI tomosynthesis [id number] IMPRESSION: BI-RADS: 1 - Negative. FOLLOW UP: 1 Year Follow-up
== END 2025-03-09 08:39 | disposition home or self-care (01) ==
LOC: RAD 08:40
PROVIDERS: PCP Family Medicine; Visit Provider Nurse Practitioner Women's Health
DX: Z12.31 Encounter for screening mammogram for malignant neoplasm of breast (principal); R92.323 Mammographic fibroglandular density, bilateral breasts
CPT/HCPCS: 77063; 77067